=== PATIENT | male | born 1995 | race Caucasian/White ===

== ENCOUNTER 2017-05-27 04:55 | Emergency (ER) | payer SELFPAY ==
[~2017-05-27] VITALS: Ht 167.6 cm; Wt 65.8 kg
[2017-05-27 05:12] VITALS: BP 130/82
[2017-05-27] MEDS ORDERED: ONDANSETRON 4 MG TAB.RAPDIS ONE (05:39)
[2017-05-27] MEDS ORDERED: ONDANSETRON 4 MG TAB.RAPDIS SL ONE (06:00)
== END 2017-05-27 05:42 | disposition home or self-care (01) ==
LOC: ER 04:58
DX: L02.414 Cutaneous abscess of left upper limb (principal); R11.0 Nausea; F41.9 Anxiety disorder, unspecified; F19.10 Other psychoactive substance abuse, uncomplicated; F17.200 Nicotine dependence, unspecified, uncomplicated; F11.10 Opioid abuse, uncomplicated
CPT/HCPCS: A4606; Q0162; Z7610